=== PATIENT | female | born 1945 | race Two or more races ===

== ENCOUNTER 2022-08-02 10:28 | Outpatient (CLI) | payer OTHER | END 2022-08-02 10:33 | disposition home or self-care (01) | LOC: SONOGRAMA 10:28 | PROVIDERS: ATTEND Pathology Anatomic Pathology & Clinical Pathology | DX: C73 Malignant neoplasm of thyroid gland (principal); D37.032 Neoplasm of uncertain behavior of the submandibular salivary glands ==